=== PATIENT | male | born 1970 | race Hispanic/Latino ===

== ENCOUNTER 2022-03-06 09:49 | Outpatient (CLI) | payer BC, SELFPAY ==
--- NOTE | 2022-03-06 09:57 | EST_ITS ---
Patient Info Name: Dre Landa Age: 51 years : 1970 Gender: Male Ht: 69 in Wt: 220 lbs BSA: 2.24 m2 HR: 65 bpm BP: 133 / 85 mmHg Heart Rhythm: Sinus Rhythm Exam Date: 03/06/2022 10:47 AM Exam Location: [facility] Stress Patient Status: Outpatient Admit Date: 03/06/2022 Staff Ordering Physician: Nain Arroyo MD Attending Provider: Nain Arroyo MD Exercise Technologist: Sara Kuhn CT Exercise Physician: Kwasi Watson DO Exam Type: CA stress test treadmill Study Info Indications R07.9 - Chest pain, unspecified A treadmill exercise stress test was performed. Summary 1. 1. Negative Abiodun exercise stress test for ischemic ST changes by ECG criteria. 2. 2. Good functional capacity, achieving 12 METs of workload. 3. 3. Appropriate HR response to exercise. 4. 4. Appropriate HR recovery at 1 minute post exercise. 5. 5. No imaging with stress testing. 6. 6. Patient informed of the above results. Protocol: Abiodun Rest HR: 65 bpm Peak HR: 154 bpm Rest Sys BP: 133 mmHg Peak Sys BP: 189 mmHg Max Pred HR: 168 bpm % Max Pred HR: 92 % Target HR: 143 bpm Max RPP: 29,106 bpm*mmHg Termination Reason: Reached target heart rate or workload Cardiac Symptoms: Shortness of breath Total Time: 11 min : 0 sec Rest Arreaga BP: 85 mmHg Peak Arreaga BP: 67 mmHg Resting ECG Normal sinus rhythm. Sinus rhythm, delayed precordial R/S transition. Stress ECG No ST changes. Arrhythmias None. Report Signatures
== END 2022-03-06 09:50 | disposition home or self-care (01) ==
LOC: ANHCARD 09:52
PROVIDERS: PCP Family Medicine; Visit Provider Family Medicine
DX: I20.9 Angina pectoris, unspecified (principal); R07.9 Chest pain, unspecified
CPT/HCPCS: 93017

== ENCOUNTER 2022-07-14 01:33 | Day surgery (SDC) | payer BC, SELFPAY ==
[2022-07-05 12:49] VITALS: BMI 32.5
--- NOTE | 2022-07-13 09:41 | WPDANESEPPF ---
Anes - Initial Pre Proc Eval Procedure: Operation Date: 07/14/22 09:45 Proposed Procedures p Colonoscopy - Bradford Mazariegos MD Date/Time: 07/13/22 09:41 Surgeon: Bradford Mazariegos MD Pre Op Diagnosis: neoplasm screening Patient Data Age: 52 Gender: M Height: 1.75 m Weight: 100 kg Allergies Allergy/AdvReac Type Severity Reaction Status Date / Time No Known Allergies Allergy Unknown Verified 07/05/22 12:46 Home Medications Medication Instructions Recorded Confirmed Type albuterol sulfate 90 mcg/actuation 1 puff inhalation Q4H PRN 05/19/19 07/05/22 Rx aerosol inhaler (ProAir HFA) shortness of breath or wheezing #8.5 grams cholecalciferol (vitamin D3) 10 10 mcg PO DAILY #1 tablet 06/16/20 07/05/22 Rx mcg (400 unit) tablet cetirizine 10 mg capsule (Zyrtec) 10 mg PO DAILY PRN Allergy Symptoms 07/04/21 07/05/22 History lactobacillus combo no.13 1 1 cap PO DAILY 07/04/21 07/05/22 History billion cell capsule,delayed release (Probiotic Pearls Complete) tzfczzxxiral-jef-wkveq acid-vit 1 tablet PO DAILY 07/04/21 07/05/22 History K-lycop 400 mcg-20 mcg-370 mcg tablet (One-A-Day Men's 50 Plus) tumeric 100 mg-adrian 150 mg-olive 1 cap PO DAILY 07/04/21 07/05/22 History 50 mg-oreg 150 mg-caprylate capsule peak flow meter (Pocket Peak Flow #1 ea 02/17/22 02/17/22 Rx Meter) sodium,potassium,mag sulfates 17.5 See Rx Instructions PO .COMPLEX 06/20/22 Rx gram-3.13 gram-1.6 gram oral soln #354 mL (Suprep Bowel Prep Kit) ascorbic acid 125 mg-collagen, 3 cap PO DAILY 07/05/22 07/05/22 History hydrolyzed 740 mg capsule (Collagen Plus Vitamin C) Patient hx anesthesia problems: none Family hx anesthesia problems: none Results Review: All pre-operative results and documents have been reviewed as part of the pre-operative evaluation. [facility] Past Medical History Medical History (Updated 07/13/22 @ 09:41 by Alirio Pedersen DO) Mixed hyperlipidemia Reactive airway disease Family History Family History Father Diabetes mellitus Grandparent Hypertension Family history of cardiovascular disease Mother Patient's mother is Family history of malignant neoplasm of breast Sibling Family history of sarcoidosis Other Family history of elevated blood lipids Family history of kidney disease Social History Social History (Updated 02/17/22 @ 15:59 by Vibha Saini MA) Smoking status: Never smoker Second hand tobacco smoke exposure: No Alcohol intake: current Substance use: never Substance use type: does not use Lack of Transportation: No Lack of Food: Never True Current Housing: I Have Housing Concerned About Future Housing: No Difficulty Paying Gas/Electric Bills: No Difficulty Paying for Meds: No Currently Unemployed: No Education: Master's Degree or Higher Difficulty w/ Childcare or Family Care: No Living arrangements: with family Occupation/Education: occupation Gender identity (if verbalized by the patient): Male Spiritual care concerns: No Anes - Eval Final PreProcedure Day of Procedure 07/13/22 09:41 Patient weight: obese Heart: regular rate and rhythm Lungs: clear to auscultation Airway: Mallampati scale class II Neurological: alert and oriented Last oral intake: >/= 8 hours ASA classification: II Emergent: no Anesthetic plan: proceed Anesthesia type and monitoring: general GIVS and standard monitoring Results Review: All pre-operative results and documents have been reviewed as part of the pre-operative evaluation. Informed Consent: The patient's anesthetic plan and its attendant risks and benefits were discussed with the patient/family/POA. Questions were solicited and answers provided to the satisfaction of the patient/family/POA.
[2022-07-14 08:07] VITALS: BP 127/79; PULSE 97; RESP 18; TEMP 36.4; O2SAT 98; BMI 31.8
[2022-07-14] MEDS: LACTATED RINGERS 1,000 ML 150 ML IV CONT (08:24)
--- NOTE | 2022-07-14 08:36 | PM.HPGS ---
History of Present Illness History of Present Illness Consent: Risks, benefits, and alternatives have been discussed and questions answered. Patient agrees to proceed with procedure. Chief complaint: neoplasm screening Narrative: Dre Landa is a 52 year old male Presents for screening colonoscopy. Patient's current weight appetite and bowel movements are normal. Patient denies abdominal pain. He has had no bleeding. Family history noncontributory. Patient did have previous colonoscopy a benign lipoma was removed at that time. Patient presents today for neoplasia screening. Review of Systems Review of Systems: Review of systems noncontributory. [facility] Past Medical History Medical History (Updated 07/13/22 @ 09:41 by Alirio Pedersen DO) Mixed hyperlipidemia Reactive airway disease Family History Family History Father Diabetes mellitus Grandparent Hypertension Family history of cardiovascular disease Mother Patient's mother is Family history of malignant neoplasm of breast Sibling Family history of sarcoidosis Other Family history of elevated blood lipids Family history of kidney disease Social History Social History (Updated 02/17/22 @ 15:59 by Vibha Saini MA) Smoking status: Never smoker Second hand tobacco smoke exposure: No Alcohol intake: current Substance use: never Substance use type: does not use Lack of Transportation: No Lack of Food: Never True Current Housing: I Have Housing Concerned About Future Housing: No Difficulty Paying Gas/Electric Bills: No Difficulty Paying for Meds: No Currently Unemployed: No Education: Master's Degree or Higher Difficulty w/ Childcare or Family Care: No Living arrangements: with family Occupation/Education: occupation Gender identity (if verbalized by the patient): Male Spiritual care concerns: No Meds Home Medications and Allergies Home Medications Medication Instructions Recorded Confirmed Type albuterol sulfate 90 mcg/actuation 1 puff inhalation Q4H PRN 05/19/19 07/05/22 Rx aerosol inhaler (ProAir HFA) shortness of breath or wheezing #8.5 grams cholecalciferol (vitamin D3) 10 10 mcg PO DAILY #1 tablet 06/16/20 07/05/22 Rx mcg (400 unit) tablet cetirizine 10 mg capsule (Zyrtec) 10 mg PO DAILY PRN Allergy Symptoms 07/04/21 07/05/22 History lactobacillus combo no.13 1 1 cap PO DAILY 07/04/21 07/05/22 History billion cell capsule,delayed release (Probiotic Pearls Complete) vvclfsgtxkgy-yrj-dczkb acid-vit 1 tablet PO DAILY 07/04/21 07/05/22 History K-lycop 400 mcg-20 mcg-370 mcg tablet (One-A-Day Men's 50 Plus) tumeric 100 mg-adrian 150 mg-olive 1 cap PO DAILY 07/04/21 07/05/22 History 50 mg-oreg 150 mg-caprylate capsule peak flow meter (Pocket Peak Flow #1 ea 02/17/22 02/17/22 Rx Meter) sodium,potassium,mag sulfates 17.5 See Rx Instructions PO .COMPLEX 06/20/22 Rx gram-3.13 gram-1.6 gram oral soln #354 mL (Suprep Bowel Prep Kit) ascorbic acid 125 mg-collagen, 3 cap PO DAILY 07/05/22 07/05/22 History hydrolyzed 740 mg capsule (Collagen Plus Vitamin C) Allergies Allergy/AdvReac Type Severity Reaction Status Date / Time No Known Allergies Allergy Unknown Verified 07/05/22 12:46 Vital Signs Vital Signs - 24 hr 07/14/22 08:07 Temperature 97.6 F Pulse Rate 97 Respiratory Rate 18 Blood Pressure 127/79 Pulse Oximetry 98 Oxygen Delivery Room Air Exam Narrative: Physical exam reveals patient to be alert. Vital signs stable. HEENT exam is unremarkable. Patient is anicteric. Lungs are clear to auscultation and percussion. Heart is without murmur or extra sounds. Abdomen bowel sounds are present soft nontender with no organomegaly. Digital external rectal exam normal. Assessment and Plan Assessment and plan (1) Colon cancer screening: Code(s):
[2022-07-14 09:55] VITALS: BP 106/71; PULSE 69; RESP 20; O2SAT 95
[2022-07-14 10:05] VITALS: BP 127/82; PULSE 67; RESP 25; O2SAT 96
[2022-07-14 10:15] VITALS: BP 128/80; PULSE 61; RESP 22; O2SAT 97
== END 2022-07-14 10:19 | disposition home or self-care (01) ==
PROVIDERS: PCP Family Medicine; Visit Provider Internal Medicine Gastroenterology
PROC: 0DJD8ZZ Inspection of Lower Intestinal Tract, Via Natural or Artificial Opening Endoscopic (ICD-10-PCS; CPT 45378; principal; 2022-07-14 09:45)
DX: Z12.11 Encounter for screening for malignant neoplasm of colon (principal); K64.8 Other hemorrhoids; E78.2 Mixed hyperlipidemia; J45.909 Unspecified asthma, uncomplicated; Z79.51 Long term (current) use of inhaled steroids; E66.9 Obesity, unspecified; Z68.31 Body mass index [BMI] 31.0-31.9, adult
CPT/HCPCS: 45378; J2001; J2704; J7120

== ENCOUNTER 2025-01-15 02:06 | Day surgery (SDC) | payer BC, SELFPAY ==
--- NOTE | 2025-01-05 13:53 | SUR.PREOP ---
[facility] has started construction of its new state of the art ER which will open Spring 2026. With this, we anticipate parking may be a challenge for some our surgical patients and families. Parking spaces are limited but are available for all Surgical, obstetrics, and ER patients sharing this lot. If you arrive and find you are having a hard time finding a parking space, please note that we understand the challenges, please drive around the hospital and park near Hospital Entrance 1. When you enter this entrance, you can ask a volunteer to direct or take you back to the surgical waiting area to check in. We appreciate everyone?s understanding of these expected challenges while we build for your future. Report to the Outpatient Waiting Room, entrance under the green pavilion located off [address], at time _11am on date _01/15/25__. Planned Procedure Time: _1pm__.? Time changes happen often and if your time is changed the preop area will call you the afternoon before. - You and your visitor will be asked to self-screen and do not enter if you have any COVID symptoms. Please call surgeon if you need to reschedule. - A mask is optional within the hospital at this time. Patients may have clear liquids (water, carbonated beverages, clear teas, apple juice) until 3 hours prior to surgery with a maximum of 20 ounces. - No food from midnight until time of surgery and no smoking, or chewing tobacco (or any form of nicotine). No chewing gum, candy or mints. Take only the following medications with a SIP of water on the morning of surgery: ___None____ DO NOT STOP ANY OF YOUR OTHER PRESCRIPTION MEDICATIONS PRIOR TO SURGERY EXCEPT THE FOLLOWING Hold all vitamins and supplements for 3 days per anesthesiologist. Medications to discontinue per physician None Date to take last dose of Multivitamin____01/10/25 Please no make-up, nail tajik, hairspray, perfume, deodorant, or body powder the day of surgery.? No jewelry (including any body piercings) or valuables the day of surgery, leave them at home.? Please take a shower or bath the night before, or the morning of, surgery with an antibacterial soap.? Wear comfortable, loose fitting clothing - Jewelry must be removed prior to entering the operating room.? Rings and piercings that are not removed may be cut off. - The hospital will not accept responsibility for valuables.? - Please leave all valuables, including medications, at home the day of surgery. If you are going home after surgery, a licensed tractor sweeper driver must drive you home.? - NO public transportation without another adult if you receive anesthesia. - We recommend that an adult stay with you for 24 hours following discharge. - We also recommend that you do not drive, make important decision, drink alcoholic beverages, or take any drugs that were not prescribed by your health care provider for at least 24 hours after your discharge time. Follow any additional instructions given to you from your surgeon. Telephone instructions given to ___Niranjan____and asked if any additional questions and then verbalized understanding. Patient advised to call surgeon office or pre surgery nurse liaison [phone] if any additional questions.
[2025-01-05 13:57] VITALS: BMI 30.3
--- NOTE | 2025-01-05 14:24 | SUR.PREOP ---
[facility] has started construction of its new state of the art ER which will open Spring 2026. With this, we anticipate parking may be a challenge for some our surgical patients and families. Parking spaces are limited but are available for all Surgical, obstetrics, and ER patients sharing this lot. If you arrive and find you are having a hard time finding a parking space, please note that we understand the challenges, please drive around the hospital and park near Hospital Entrance 1. When you enter this entrance, you can ask a volunteer to direct or take you back to the surgical waiting area to check in. We appreciate everyone?s understanding of these expected challenges while we build for your future. Report to the Outpatient Waiting Room, entrance under the green pavilion located off [address], at time ___6AM__ on date __01/15/25__. Planned Procedure Time: _730AM__.? Time changes happen often and if your time is changed the preop area will call you the afternoon before. - You and your visitor will be asked to self-screen and do not enter if you have any COVID symptoms. Please call surgeon if you need to reschedule. - A mask is optional within the hospital at this time. Patients may have clear liquids (water, carbonated beverages, clear teas, apple juice) until 3 hours prior to surgery with a maximum of 20 ounces. - No food from midnight until time of surgery and no smoking, or chewing tobacco (or any form of nicotine). No chewing gum, candy or mints. Take only the following medications with a SIP of water on the morning of surgery: __None____ DO NOT STOP ANY OF YOUR OTHER PRESCRIPTION MEDICATIONS PRIOR TO SURGERY EXCEPT THE FOLLOWING Hold all vitamins and supplements for 3 days per anesthesiologist. Medications to discontinue per physician None Date to take last dose of vitamins:__01/11/25___ Please no make-up, nail chadian, hairspray, perfume, deodorant, or body powder the day of surgery.? No jewelry (including any body piercings) or valuables the day of surgery, leave them at home.? Please take a shower or bath the night before, or the morning of, surgery with an antibacterial soap.? Wear comfortable, loose fitting clothing.? - Jewelry must be removed prior to entering the operating room.? Rings and piercings that are not removed may be cut off. - The hospital will not accept responsibility for valuables.? - Please leave all valuables, including medications, at home the day of surgery. If you are going home after surgery, a licensed tank truck driver must drive you home.? - NO public transportation without another adult if you receive anesthesia. - We recommend that an adult stay with you for 24 hours following discharge. - We also recommend that you do not drive, make important decision, drink alcoholic beverages, or take any drugs that were not prescribed by your health care provider for at least 24 hours after your discharge time. Follow any additional instructions given to you from your surgeon. Telephone instructions given to __Niranjan__and asked if any additional questions and then verbalized understanding. Patient advised to call surgeon office or pre surgery nurse liaison [phone] if any additional questions.
--- NOTE | 2025-01-08 07:07 | PM.HPGS ---
History of Present Illness History of Present Illness Consent: Risks, benefits, and alternatives have been discussed and questions answered. Patient agrees to proceed with procedure. Chief complaint: Hydrocele, Epididymitis Narrative: Dre Landa is a 54 year old male first seen 03/2024: Patient has had right hemiscrotal swelling for 8 months that was painless. ?When doing exertional lift in her strain unless week noticed some discomfort in his right inguinal canal radiating into his right hemiscrotum. ? Exam is difficult because he has a moderate-sized hydrocele which precludes palpation of the testicle or epididymis. ??it seems as he has a moderate-sized right hydrocele that may have been worsened by a new onset right epididymitis. ?I am going to start Septra DS pending culture and schedule a scrotal ultrasound Addendum Note?(David eWaver MD; 04/09/2024 6:59 AM) Cx.: negative Septra DS bid x2 weeks Await scrotal u/s Addendum Note?(David Weaver MD; 04/11/2024 1:51 PM) Scrotal u/s: - large right hydrocele ?- normal testicles bilaterally ?- ?possible epididymitis Addendum Note?(David Weaver MD; 04/17/2024 3:46 PM) Long discussion with patient on the phone about his scrotal ultrasound. ?I explained to him the indications for hydrocelectomy. ?Currently he has not all that bothered but call or come back if this progresses. Addendum Note?(David Weaver MD; 11/04/2024 8:14 AM) Patient opting now for right hydrocelectomy Review of Systems Review of Systems: All systems reviewed & are unremarkable except as noted in HPI and below PMFSH Past Medical History Medical History Mixed hyperlipidemia Reactive airway disease Family History Family History Father Diabetes mellitus Grandparent Hypertension Family history of cardiovascular disease Mother Patient's mother is Family history of malignant neoplasm of breast Sibling Family history of sarcoidosis Other Family history of elevated blood lipids Family history of kidney disease Social History Social History Smoking status: Never smoker Second hand tobacco smoke exposure: No Alcohol intake: current Substance use: never Substance use type: does not use Lack of Transportation: No Lack of Food: Never True Current Housing: I Have Housing Concerned About Future Housing: No Difficulty Paying Gas/Electric Bills: No Difficulty Paying for Meds: No Currently Unemployed: No Education: Master's Degree or Higher Difficulty w/ Childcare or Family Care: No Living arrangements: with family Occupation/Education: occupation Gender identity (if verbalized by the patient): Male Spiritual care concerns: No Meds Home Medications and Allergies Home Medications ?Medication ?Instructions ?Recorded ?Confirmed ?Type cholecalciferol (vitamin D3) 10 10 mcg PO DAILY #1 tablet 06/16/20 01/05/25 Rx mcg (400 unit) tablet cetirizine 10 mg capsule (Zyrtec) 10 mg PO DAILY PRN Allergy Symptoms 07/04/21 01/05/25 History lactobacillus combo no.13 1 1 cap PO DAILY 07/04/21 01/05/25 History billion cell capsule,delayed release (Probiotic Pearls Complete) ybzhilauxjnn-dmy-htptv acid-vit 1 tablet PO DAILY 07/04/21 01/05/25 History K-lycop 400 mcg-20 mcg-370 mcg tablet (One-A-Day Men's 50 Plus (with vitamin K)) turmeric 100 mg-adrian 150 1 cap PO DAILY 07/04/21 01/05/25 History mg-olive 50 mg-oreg 150 mg-capryl capsule ascorbic acid 125 mg-collagen, 3 cap PO DAILY 07/05/22 01/05/25 History hydrolyzed 740 mg capsule (Collagen Plus Vitamin C) albuterol sulfate 90 mcg/actuation 1 puff inhalation Q4H PRN 01/26/23 01/05/25 Rx aerosol inhaler (ProAir HFA) shortness of breath or wheezing #8.5 grams fluticasone furoate 100 1 inh inhalation DAILY #60 ea 09/15/24 01/05/25 Rx mcg-vilanterol 25 mcg/dose inhalation powder (Breo Ellipta) omega 4-iuh-usb-fish oil 1,000 mg 1 cap PO DAILY 01/05/25 01/05/25 History (120 mg-180 mg) capsule (Fish Oil) Allergies Allergy/AdvReac Type Severity Reaction Status Date / Time No Known Allergies Allergy Unknown Verified 01/05/25 13:54 Exam Const: General: no acute distress Resp: Effort & Inspection: normal respiratory effort GI: Inspection: non-distended GI Palp: No abdominal tenderness and No Guarding due to palpation present (GI) Auscultation: normal bowel sounds : Scrotum: Hydrocele present on the right Assessment and Plan Assessment and plan (1) Hydrocele: Code(s): N43.3 - Hydrocele, unspecified Status: Acute Assessment and Plan: Right hydrocelectomy
[2025-01-15] VITALS (9 sets, daily range): BP systolic 118–143; BP diastolic 64–83; PULSE 46–66; RESP 14–16; TEMP 36.4–36.6; O2SAT 95–100
--- NOTE | 2025-01-15 06:17 | WPDHPUPDATE1 ---
History and Physical Update Update Date/Time: 01/15/25 06:17 History and Physical has been reviewed, including an updated exam of the patient. There are NO changes in the patient's condition. Risks, benefits, and alternatives have been discussed and questions answered. Patient agrees to proceed with procedure.
[2025-01-15] MEDS: LACTATED RINGERS 1,000 ML 30 ML IV CONT ×2 (06:30→08:13)
--- NOTE | 2025-01-15 06:52 | WPDANESEPPF ---
Anes - Initial Pre Proc Eval Procedure: Operation Date: 01/15/25 07:30 Proposed Procedures p Right Hydrocelectomy - David Weaver MD Date/Time: 01/15/25 06:52 Surgeon: David Weaver MD Pre Op Diagnosis: Hydrocele, Epididymitis Patient Data Age: 54 Gender: M Height: 1.75 m Weight: 95.6 kg Last Vital Signs Temp 97.6 F 01/15/25 06:30 Pulse 65 01/15/25 06:30 Resp 16 01/15/25 06:30 BP 132/79 01/15/25 06:30 Pulse Ox 98 01/15/25 06:30 O2 Del Method Room Air 01/15/25 06:30 Allergies Allergy/AdvReac Type Severity Reaction Status Date / Time No Known Allergies Allergy Unknown Verified 01/15/25 06:37 Home Medications ?Medication ?Instructions ?Recorded ?Confirmed ?Type cholecalciferol (vitamin D3) 10 10 mcg PO DAILY #1 tablet 06/16/20 01/15/25 Rx mcg (400 unit) tablet cetirizine 10 mg capsule (Zyrtec) 10 mg PO DAILY PRN Allergy Symptoms 07/04/21 01/05/25 History lactobacillus combo no.13 1 1 cap PO DAILY 07/04/21 01/05/25 History billion cell capsule,delayed release (Probiotic Pearls Complete) gprwihdppdiq-his-gwhwk acid-vit 1 tablet PO DAILY 07/04/21 01/15/25 History K-lycop 400 mcg-20 mcg-370 mcg tablet (One-A-Day Men's 50 Plus (with vitamin K)) turmeric 100 mg-adrian 150 1 cap PO DAILY 07/04/21 01/15/25 History mg-olive 50 mg-oreg 150 mg-capryl capsule ascorbic acid 125 mg-collagen, 3 cap PO DAILY 07/05/22 01/15/25 History hydrolyzed 740 mg capsule (Collagen Plus Vitamin C) albuterol sulfate 90 mcg/actuation 1 puff inhalation Q4H PRN 01/26/23 01/05/25 Rx aerosol inhaler (ProAir HFA) shortness of breath or wheezing #8.5 grams omega 3-gbm-fkm-fish oil 1,000 mg 1 cap PO DAILY 01/05/25 01/15/25 History (120 mg-180 mg) capsule (Fish Oil) fluticasone furoate 100 1 inh inhalation DAILY #60 ea 01/14/25 Rx mcg-vilanterol 25 mcg/dose inhalation powder (Breo Ellipta) Patient hx anesthesia problems: none Family hx anesthesia problems: none Results Review: All pre-operative results and documents have been reviewed as part of the pre-operative evaluation. [facility] Past Medical History Medical History Reactive airway disease Mixed hyperlipidemia Family History Family History Father Diabetes mellitus Grandparent Hypertension Family history of cardiovascular disease Mother Patient's mother is Family history of malignant neoplasm of breast Sibling Family history of sarcoidosis Other Family history of elevated blood lipids Family history of kidney disease Social History Social History Smoking status: Never smoker Second hand tobacco smoke exposure: No Alcohol intake: current Substance use: never Substance use type: does not use Lack of Transportation: No Lack of Food: Never True Current Housing: I Have Housing Concerned About Future Housing: No Difficulty Paying Gas/Electric Bills: No Difficulty Paying for Meds: No Currently Unemployed: No Education: Master's Degree or Higher Difficulty w/ Childcare or Family Care: No Living arrangements: with family Occupation/Education: occupation Gender identity (if verbalized by the patient): Male Spiritual care concerns: No Anes - Eval Final PreProcedure Day of Procedure 01/15/25 06:52 Patient weight: overweight Lungs: normal air movement Airway: Mallampati scale class II Neurological: alert and oriented Last oral intake: >/= 8 hours ASA classification: II Emergent: no Anesthetic plan: proceed Anesthesia type and monitoring: general LMA and standard monitoring Results Review: All pre-operative results and documents have been reviewed as part of the pre-operative evaluation. BMI 31, exercise induced asthma, stable. Active w crossfit workouts, no cp or sob. Informed Consent: The patient's anesthetic plan and its attendant risks and benefits were discussed with the patient/family/POA. Questions were solicited and answers provided to the satisfaction of the patient/family/POA.
[2025-01-15] MEDS: ceFAZolin 2 GM in SODIUM CHLORIDE 0.9% IV 50 ML 100 ML IVPB (07:29)
[2025-01-15] MEDS: BUPIVACAINE/EPINEPHRINE 0.5% 50 ML VIAL 30 ML INFILTRATE (07:53)
--- NOTE | 2025-01-15 08:12 | W.PM.PROC2 ---
Procedure Note - Detailed Date of Procedure 01/15/25 Pre-op Diagnosis Right hydrocele Post-op Diagnosis Same Procedure Performed Right hydrocelectomy Surgeon David Weaver MD Anesthesia General Description of Procedure The patient was brought to the operative suite where he was prepped and draped in routine sterile fashion while in a supine position after the uneventful induction of a general LMA anesthetic. An incision was made in the median raphe of the scrotum and dissection was carried into the [left/right] tunica vaginalis. Clear, straw-colored fluid was drained. The testicle was examined and found to be both visibly and palpably normal. The tunica was everted in a bottle-neck fashion using a running 4-0 chromic. The testicle was restore returned to an orthotopic positioned. The dartos muscle was closed with a running 4-0 chromic and the skin was likewise closed with a running 4-0 chromic. Estimated blood loss throughout this procedure was 20cc . Patient tolerated the procedure well and was taken to the recovery room in good condition. Drains No Packing No Pathology None sent Complications No immediate complications
[2025-01-15] MEDS: fentaNYL CITRATE INJ (*CRX) 100 MCG/2 ML VIAL 25 MCG IV PUSH ×4 (08:27→08:54)
[2025-01-15] MEDS: oxyCODONE HCL (*CRX) 5 MG TAB IR PO (09:40)
== END 2025-01-15 10:04 | disposition home or self-care (01) ==
PROVIDERS: PCP Family Medicine; Visit Provider Urology
PROC: (CPT 55040; principal; 2025-01-15 07:30)
DX: N43.3 Hydrocele, unspecified (principal)
CPT/HCPCS: 55060; J0690; A9270; J1100; J2003; J2250; J2405; J2704; J3010; J7120